=== PATIENT | male | born 1985 ===

== ENCOUNTER → 2020-03-22 | Outpatient (CLI) | payer BC | END | disposition home or self-care (01) | LOC: LAB SHORT 14:52 → PLD 14:52 | DX: L83 Acanthosis nigricans (principal); R23.4 Changes in skin texture; L40.9 Psoriasis, unspecified | CPT/HCPCS: 88305; 88312 ==

== ENCOUNTER → 2021-01-28 | Outpatient (CLI) | payer BC ==
[2021-01-28 20:21] LABS: Adenovirus F 40/41 Not Detected (NOT DETECT); Astrovirus Not Detected (NOT DETECT); Campylobacter Sp Not Detected (NOT DETECT); Cryptosporidium Not Detected (NOT DETECT); Cyclospora Cayetanensis Not Detected (NOT DETECT); E. Coli O157 Not Detected (NOT DETECT); Entamoeba Histolytica Not Detected (NOT DETECT); Enteroaggregative E. coli-EAEC Not Detected (NOT DETECT); Enteropathogenic E. coli-EPEC Detected (NOT DETECT); Enterotoxigenic E. coli-ETEC Not Detected (NOT DETECT); Giardia Lamblia Not Detected (NOT DETECT); Norovirus GI/GII Not Detected (NOT DETECT); Plesiomonas Shigelloides Not Detected (NOT DETECT); Rotavirus A Not Detected (NOT DETECT); Salmonella Sp Not Detected (NOT DETECT); Sapovirus Not Detected (NOT DETECT); Shiga Toxin-prod E. coli-STEC Not Detected (NOT DETECT); Shigella/Enteroin E. coli-EIEC Not Detected (NOT DETECT); Vibrio Cholerae Not Detected (NOT DETECT); Vibrio Sp Not Detected (NOT DETECT); Yersinia Enterocolitica Not Detected (NOT DETECT)
== END | disposition home or self-care (01) ==
LOC: LAB SHORT 15:02 → LAB 15:02
PROVIDERS: General Practice
DX: R19.7 Diarrhea, unspecified (principal)
CPT/HCPCS: 0097U; 87177; 87209; 87324

== ENCOUNTER → 2021-01-29 | Outpatient (CLI) | payer BC | LOC: LAB SHORT 14:13 → LAB 14:13 | DX: R19.7 Diarrhea, unspecified (principal) | CPT/HCPCS: 87177; 87209 ==